=== PATIENT | male | born 1950 | race Caucasian/White ===

== ENCOUNTER 2017-05-13 18:19 | Inpatient (IN) | payer MEDICARE, OTHER ==
[2017-05-13] MEDS: SODIUM CHLORIDE 0.9% 1L BAG IV* (22:49)
[2017-05-13] MEDS: ACETAMINOPHEN 325 MG TAB PO (22:56)
[2017-05-13 22:59] LABS: ADD MAN DIFF? NO
[2017-05-13 23:01] LABS: WHITE BLOOD COUNT 5.8 10^3/ul (4.8-10.8)
[2017-05-13 23:01] LABS: BASOPHILS % 0.5 % (0.0-2.0); HEMATOCRIT 46.5 % (42.0-52.0); HEMOGLOBIN 16.1 g/dl (14.0-18.0); LYMPHOCYTES # 0.7 10^3/ul (0.8-2.9); LYMPHOCYTES % 12.8 % (15.0-51.0); MEAN CORPUSCULAR HEMOGLOBIN 31.1 pg (29.0-33.0); MEAN CORPUSCULAR HGB CONC 34.6 g/dl (32.0-37.0); MEAN CORPUSCULAR VOLUME 89.8 fl (82.0-101.0); MEAN PLATELET VOLUME 11.7 fl (7.4-10.4); MONOCYTES % 16.6 % (0.0-11.0); NEUTROPHILS % 69.8 % (39.0-77.0); PLATELET COUNT 151 10^3/UL (140-415); RED BLOOD COUNT 5.18 10^6/ul (4.70-6.10); RED CELL DISTRIBUTION WIDTH 12.2 % (11.5-14.5)
[2017-05-13 23:17] LABS: ADD UMIC YES; UR ASCORBIC ACID 20 mg/dL (NEGATIVE); UR BILIRUBIN (Dip) NEGATIVE (NEGATIVE); UR BLOOD (Dip) NEGATIVE (NEGATIVE); UR CLARITY SLIGHTLY CLOUDY (CLEAR); UR COLOR AMBER (YELLOW); UR GLUCOSE (Dip) 3+ mg/dL (NEGATIVE); UR KETONES (Dip) TRACE mg/dL (NEGATIVE); UR LEUKOCYTE ESTERASE (Dip) NEGATIVE Leu/ul (NEGATIVE); UR MUCUS MANY /HPF (NONE SEEN); UR NITRITE (Dip) NEGATIVE (NEGATIVE); UR RBC 1 /HPF (0-5); UR SPECIFIC GRAVITY (Dip) 1.031 (1.003-1.030); UR TOTAL PROTEIN (Dip) 2+ mg/dl (NEGATIVE); UR UROBILINOGEN (Dip) 1+ mg/dL (NEGATIVE); UR WBC 4 /HPF (0-5)
[2017-05-13 23:28] LABS: ALANINE AMINOTRANSFERASE 35 IU/L (13-69); ALBUMIN 4.4 g/dl (3.3-4.9); ALBUMIN/GLOBULIN RATIO 1.41; ALKALINE PHOSPHATASE 71 IU/L (42-121); ANION GAP 16 (8-16); ASPARTATE AMINO TRANSFERASE 34 IU/L (15-46); BILIRUBIN,INDIRECT 0.4 mg/dl (0-1.1); BILIRUBIN,TOTAL 0.4 mg/dl (0.2-1.3); BLOOD UREA NITROGEN 17 mg/dl (7-20); CALCIUM 8.9 mg/dl (8.4-10.2); CARBON DIOXIDE 25 mmol/L (21-31); CHLORIDE 99 mmol/L (97-110); CREATININE 0.87 mg/dl (0.61-1.24); GLUCOSE 213 mg/dl (70-220); POTASSIUM 4.3 mmol/L (3.5-5.1); SODIUM 136 mmol/L (135-144); TOTAL PROTEIN 7.5 g/dl (6.1-8.1)
[2017-05-13 23:37] LABS: LACTIC ACID 2.2 mmol/L (0.5-2.0)
[2017-05-13 23:43] LABS: TROPONIN-I < 0.012 ng/ml (0.00-0.12)
[2017-05-14] MEDS: VANCOMYCIN 1 GM (PMX) 250 ML IVPB (00:10)
[2017-05-14 00:21] LABS: INR 1.23; PROTIME 15.7 Sec (11.9-14.9); PT RATIO 1.2
[2017-05-14 00:22] LABS: PARTIAL THROMBOPLASTIN TIME 33.7 Sec (25.0-35.0)
[2017-05-14 01:16] LABS: LACTIC ACID 1.1 mmol/L (0.5-2.0)
[2017-05-14 03:33] LABS: LACTIC ACID 1.7 mmol/L (0.5-2.0)
[2017-05-14] MEDS ORDERED: GLUCAGON 1 MG INJ IM (07:30)
[2017-05-14] MEDS ORDERED: GLUCOSE GEL 15 GRAM TUBE BUCCAL (07:30)
[2017-05-14] MEDS ORDERED: VANCOMYCIN IV PER PHARMACY XX (07:30)
[2017-05-14] MEDS ORDERED: morphine SULFATE/PF (2 MG/2 ML) SYG IV (07:30)
[2017-05-14] MEDS ORDERED: GLUCOSE GEL 15 GRAM TUBE PO ×2 (07:30)
[2017-05-14] MEDS ORDERED: ONDANSETRON 4 MG INJ IV (07:30)
[2017-05-14] MEDS ORDERED: DEXTROSE 50% 50 ML SYRINGE IV ×2 (07:30)
[2017-05-14] MEDS ORDERED: morphine LIQ (10 MG/5 ML) CUP PO (08:00)
[2017-05-14] MEDS ORDERED: VANCOMYCIN 750 MG in DEXTROSE 5% 150 ML IVPB (09:00)
[2017-05-14] MEDS: LISINOPRIL 20 MG TAB PO (09:00)
[2017-05-14] MEDS: metFORMIN 500 MG TAB PO ×2 (09:22→17:22)
[2017-05-14] MEDS: ASPIRIN 81 MG TAB PO (09:22)
[2017-05-14] MEDS: VANCOMYCIN 1 GM 250 ML IVPB ×2 (09:23→22:40)
[2017-05-14] MEDS: INSULIN ASPART [NOVOLOG] 3 ML PEN SC ×3 (09:26→20:46)
[2017-05-14] MEDS: LISINOPRIL 5 MG TAB PO (12:00)
[2017-05-14] MEDS: AZTREONAM 1 GM/NS (PMX) 50 ML IVPB ×2 (13:13→20:42)
[2017-05-15] MEDS: ACCU-CHEK XX (02:03)
[2017-05-15 05:29] LABS: ADD MAN DIFF? NO
[2017-05-15 05:35] LABS: BLOOD UREA NITROGEN 12 mg/dl (7-20)
[2017-05-15 05:35] LABS: CREATININE 0.66 mg/dl (0.61-1.24)
[2017-05-15 05:40] LABS: WHITE BLOOD COUNT 5.7 10^3/ul (4.8-10.8)
[2017-05-15 05:40] LABS: BASOPHILS % 0.4 % (0.0-2.0); EOSINOPHILS % 0.2 % (0.0-7.0); HEMATOCRIT 41.3 % (42.0-52.0); LYMPHOCYTES # 1.4 10^3/ul (0.8-2.9); LYMPHOCYTES % 25.4 % (15.0-51.0); MEAN CORPUSCULAR HEMOGLOBIN 30.9 pg (29.0-33.0); MEAN CORPUSCULAR HGB CONC 33.9 g/dl (32.0-37.0); MEAN CORPUSCULAR VOLUME 91.2 fl (82.0-101.0); MEAN PLATELET VOLUME 11.5 fl (7.4-10.4); MONOCYTE # 0.6 10^3/ul (0.3-0.9); NEUTROPHIL # 3.6 10^3/ul (1.6-7.5); NEUTROPHILS % 63.6 % (39.0-77.0); PLATELET COUNT 124 10^3/UL (140-415); POSITIVE DIFF @See below; RED BLOOD COUNT 4.53 10^6/ul (4.70-6.10); RED CELL DISTRIBUTION WIDTH 11.9 % (11.5-14.5)
[2017-05-15 05:48] LABS: BLOOD UREA NITROGEN 12 mg/dl (7-20); CARBON DIOXIDE 26 mmol/L (21-31); CHLORIDE 103 mmol/L (97-110); CHOL/HDL RATIO 4.6 RATIO; CHOLESTEROL 108 mg/dl (100-200); GLUCOSE 211 mg/dl (70-220); HDL CHOLESTEROL 23 mg/dl (30-78); LDL CHOLESTEROL,CALCULATED 56 mg/dl; SODIUM 137 mmol/L (135-144); TRIGLYCERIDES 147 mg/dl (0-149)
[2017-05-15 06:03] LABS: ANION GAP 12 (8-16)
[2017-05-15 07:18] LABS: HEMOGLOBIN A1C 12.8 % (0-5.9)
[2017-05-15] MEDS: INSULIN ASPART [NOVOLOG] 3 ML PEN SC ×5 (07:42→21:29)
[2017-05-15] MEDS: ASPIRIN (EC) 81 MG TAB PO (08:22)
[2017-05-15] MEDS: LISINOPRIL 10 MG TAB PO (08:22)
[2017-05-15] MEDS: metFORMIN 500 MG TAB PO ×2 (08:22→17:40)
[2017-05-15] MEDS: AZTREONAM 1 GM/NS (PMX) 50 ML IVPB (08:23)
[2017-05-15] MEDS: VANCOMYCIN 1 GM 250 ML IVPB (09:43)
[2017-05-15] MEDS: LEVOFLOXACIN 500 MG TAB PO (14:36)
[2017-05-15] MEDS ORDERED: INSULIN ASPART [NOVOLOG] 3 ML PEN SC (21:00)
[2017-05-15] MEDS: INSULIN GLARGINE [LANtus] 3 ML PEN SC (21:30)
[2017-05-16] MEDS: ACCU-CHEK XX (02:00)
[2017-05-16 05:56] LABS: ADD MAN DIFF? NO
[2017-05-16 05:59] LABS: WHITE BLOOD COUNT 4.7 10^3/ul (4.8-10.8)
[2017-05-16 05:59] LABS: BASOPHILS % 0.2 % (0.0-2.0); EOSINOPHILS % 0.2 % (0.0-7.0); HEMATOCRIT 40.9 % (42.0-52.0); LYMPHOCYTES # 1.2 10^3/ul (0.8-2.9); LYMPHOCYTES % 26.2 % (15.0-51.0); MEAN CORPUSCULAR HEMOGLOBIN 30.8 pg (29.0-33.0); MEAN CORPUSCULAR HGB CONC 34.2 g/dl (32.0-37.0); MEAN CORPUSCULAR VOLUME 90.1 fl (82.0-101.0); MEAN PLATELET VOLUME 11.1 fl (7.4-10.4); MONOCYTE # 0.5 10^3/ul (0.3-0.9); MONOCYTES % 10.1 % (0.0-11.0); NEUTROPHILS % 63.1 % (39.0-77.0); PLATELET COUNT 125 10^3/UL (140-415); POSITIVE DIFF @See below; RED BLOOD COUNT 4.54 10^6/ul (4.70-6.10); RED CELL DISTRIBUTION WIDTH 11.7 % (11.5-14.5)
[2017-05-16] MEDS: LEVOFLOXACIN 500 MG TAB PO (06:25)
[2017-05-16 06:45] LABS: ANION GAP 13 (8-16); BLOOD UREA NITROGEN 14 mg/dl (7-20); CALCIUM 8.4 mg/dl (8.4-10.2); CARBON DIOXIDE 26 mmol/L (21-31); CHLORIDE 101 mmol/L (97-110); CREATININE 0.68 mg/dl (0.61-1.24); GLUCOSE 161 mg/dl (70-220); POTASSIUM 3.8 mmol/L (3.5-5.1); SODIUM 136 mmol/L (135-144)
[2017-05-16] MEDS: metFORMIN 500 MG TAB PO ×2 (07:59→17:00)
[2017-05-16] MEDS: INSULIN ASPART [NOVOLOG] 3 ML PEN SC ×7 (08:00→21:00)
[2017-05-16] MEDS: LISINOPRIL 10 MG TAB PO (09:34)
[2017-05-16] MEDS: LINAGLIPTIN 5 MG TABLET PO (09:35)
[2017-05-16] MEDS: ASPIRIN (EC) 81 MG TAB PO (09:35)
[2017-05-16] MEDS: OSELTAMIVIR 75 MG CAP PO (21:33)
[2017-05-16] MEDS: INSULIN GLARGINE [LANtus] 3 ML PEN SC (21:37)
[2017-05-17] MEDS: ACCU-CHEK XX (02:00)
[2017-05-17] MEDS: LEVOFLOXACIN 500 MG TAB PO (05:46)
[2017-05-17 06:21] LABS: ADD MAN DIFF? NO
[2017-05-17 06:27] LABS: WHITE BLOOD COUNT 3.9 10^3/ul (4.8-10.8)
[2017-05-17 06:27] LABS: BASOPHILS % 0.3 % (0.0-2.0); EOSINOPHILS # 0.1 10^3/ul (0.0-0.5); EOSINOPHILS % 2.5 % (0.0-7.0); HEMATOCRIT 39.7 % (42.0-52.0); HEMOGLOBIN 14.2 g/dl (14.0-18.0); LYMPHOCYTES # 1.5 10^3/ul (0.8-2.9); LYMPHOCYTES % 38.3 % (15.0-51.0); MEAN CORPUSCULAR HEMOGLOBIN 31.6 pg (29.0-33.0); MEAN CORPUSCULAR HGB CONC 35.8 g/dl (32.0-37.0); MEAN CORPUSCULAR VOLUME 88.4 fl (82.0-101.0); MEAN PLATELET VOLUME 10.8 fl (7.4-10.4); MONOCYTE # 0.5 10^3/ul (0.3-0.9); MONOCYTES % 11.7 % (0.0-11.0); NEUTROPHIL # 1.9 10^3/ul (1.6-7.5); NEUTROPHILS % 46.9 % (39.0-77.0); PLATELET COUNT 135 10^3/UL (140-415); POSITIVE DIFF @See below; RED BLOOD COUNT 4.49 10^6/ul (4.70-6.10); RED CELL DISTRIBUTION WIDTH 11.8 % (11.5-14.5)
[2017-05-17 07:18] LABS: CHLORIDE 103 mmol/L (97-110)
[2017-05-17 07:20] LABS: BLOOD UREA NITROGEN 15 mg/dl (7-20); CALCIUM 8.6 mg/dl (8.4-10.2); CARBON DIOXIDE 25 mmol/L (21-31); GLUCOSE 116 mg/dl (70-220); POTASSIUM 3.7 mmol/L (3.5-5.1); SODIUM 138 mmol/L (135-144)
[2017-05-17 07:53] LABS: ANION GAP 14 (8-16)
[2017-05-17] MEDS: INSULIN ASPART [NOVOLOG] 3 ML PEN SC ×7 (07:59→21:00)
[2017-05-17] MEDS: ASPIRIN (EC) 81 MG TAB PO (08:25)
[2017-05-17] MEDS: OSELTAMIVIR 75 MG CAP PO ×2 (08:25→21:23)
[2017-05-17] MEDS: metFORMIN 500 MG TAB PO ×2 (08:25→17:34)
[2017-05-17] MEDS: LINAGLIPTIN 5 MG TABLET PO (08:26)
[2017-05-17] MEDS: LISINOPRIL 10 MG TAB PO (08:26)
[2017-05-17] MEDS: INSULIN GLARGINE [LANtus] 3 ML PEN SC (20:15)
[2017-05-18] MEDS: ACCU-CHEK XX (02:00)
[2017-05-18] MEDS: LEVOFLOXACIN 500 MG TAB PO (06:12)
[2017-05-18] MEDS: ASPIRIN (EC) 81 MG TAB PO (08:12)
[2017-05-18] MEDS: LISINOPRIL 10 MG TAB PO (08:12)
[2017-05-18] MEDS: metFORMIN 500 MG TAB PO ×2 (08:12→17:35)
[2017-05-18] MEDS: LINAGLIPTIN 5 MG TABLET PO (08:12)
[2017-05-18] MEDS: OSELTAMIVIR 75 MG CAP PO (08:12)
[2017-05-18] MEDS: INSULIN ASPART [NOVOLOG] 3 ML PEN SC ×6 (08:14→17:35)
== END 2017-05-18 19:03 | disposition home or self-care (01) | DRG 871 ==
LOC: E/R 18:19 → PP2 05-15 17:15 → MS3 05-14 00:18
PROVIDERS: Internal Medicine
DX: A41.89 Other specified sepsis (principal); J18.9 Pneumonia, unspecified organism; E87.2 Acidosis; E11.65 Type 2 diabetes mellitus with hyperglycemia; I10 Essential (primary) hypertension; R65.20 Severe sepsis without septic shock; J10.1 Influenza due to other identified influenza virus with other respiratory manifestations; J20.8 Acute bronchitis due to other specified organisms; Z79.84 Long term (current) use of oral hypoglycemic drugs; Z79.82 Long term (current) use of aspirin; Z79.4 Long term (current) use of insulin; Z87.891 Personal history of nicotine dependence
CPT/HCPCS: 36415; 71045; 80048; 80053; 80061; 81001; 82565; 82962; 83036; 83605; 84484; 84520; 85025; 85610; 85730; 87040; 87070; 87086; 87400; 93005; 96374; 99291-25